=== PATIENT | male | born 1980 | race Hispanic/Latino ===

== ENCOUNTER 2017-10-07 10:14 | Day surgery (SDC) | payer OTHER ==
[2017-10-07 10:19] VITALS: BMI 25.8
--- NOTE | 2017-10-07 10:39 | ED PDOC ---
Arrival/HPI - General Chief Complaint: Foreign Body Time Seen by Provider: 10/07/17 10:22 Historian: Patient - History of Present Illness Narrative History of Present Illness (Text): 10/07/17 10:30 A 37 year old male, with no significant past medical history, presents to the emergency department complaining of something stuck in throat. Patient reports he drank homemade beef soup with cut vegetables. After drinking soup, patient began experiencing complaint and has had difficulty swallowing and drinking water. States when drinking water, water gurgles and is spat out. Patient denies any shortness of breath or any other complaints at this time. Also, patient notes this has never occurred before. No PMD Past Medical History - Provider Review Nursing Documentation Reviewed: Yes - Psychiatric Hx Substance Use: No - Surgical History Hx Musculoskeletal Surgery: Yes (hip and back) - Anesthesia Hx Anesthesia: Yes Hx Anesthesia Reactions: No Hx Malignant Hyperthermia: No Family/Social History - Physician Review Nursing Documentation Reviewed: Yes Family/Social History: No Known Family HX Smoking Status: Never Smoked Hx Alcohol Use: Yes Frequency of alcohol use: Socially Hx Substance Use: No Allergies/Home Meds Allergies/Adverse Reactions: Allergies No Known Allergies Allergy (Verified 10/07/17 10:18) Home Medications: Home Meds Medication Instructions Recorded Confirmed Pantoprazole [Protonix] 40 mg PO DAILY 10/07/17 10/07/17 Sucralfate [Carafate] 1 tsp PO QID 10/07/17 10/07/17 Review of Systems - Physician Review All systems were reviewed & negative as marked: Yes - Review of Systems ENT: Other (patient states feeling something stuck in throat; has difficulty swallowing and drinking fluids) Respiratory: absent: SOB Physical Exam Vital Signs Reviewed: Yes Vital Signs Temp Pulse Resp BP Pulse Ox 10/07/17 16:16 98.7 F 101 H 18 124/96 H 96 10/07/17 15:50 98.7 F 106 H 18 120/87 95 10/07/17 15:44 98.2 F 107 H 18 128/78 96 10/07/17 15:30 98.2 F 109 H 18 139/74 99 10/07/17 15:14 98.2 F 109 H 18 136/86 99 10/07/17 14:59 98.2 F 112 H 14 128/82 98 10/07/17 13:37 98.2 F 101 H 21 137/89 96 10/07/17 13:22 108 H 18 134/107 H 97 10/07/17 11:39 87 18 127/83 97 10/07/17 10:21 98.3 F 90 18 147/84 98 Temperature: Afebrile Blood Pressure: Normal Pulse: Regular Respiratory Rate: Normal Appearance: Positive for: Well-Appearing Pain Distress: None Mental Status: Positive for: Alert and Oriented X 3 - Systems Exam Head: Present: Atraumatic, Normocephalic Pupils: Present: PERRL Extroacular Muscles: Present: EOMI Conjunctiva: Present: Normal Mouth: Present: Moist Mucous Membranes Neck: Present: Normal Range of Motion Respiratory/Chest: Present: Clear to Auscultation, Good Air Exchange. No: Respiratory Distress, Accessory Muscle Use Cardiovascular: Present: Regular Rate and Rhythm, Normal S1, S2. No: Murmurs Abdomen: Present: Normal Bowel Sounds. No: Tenderness, Distention, Peritoneal Signs Back: Present: Normal Inspection Upper Extremity: Present: Normal Inspection. No: Cyanosis, Edema Lower Extremity: Present: Normal Inspection. No: Edema Neurological: Present: GCS=15, CN II-XII Intact, Speech Normal Skin: Present: Warm, Dry, Normal Color. No: Rashes Psychiatric: Present: Alert, Oriented x 3, Normal Insight, Normal Concentration Medical Decision Making ED Course and Treatment: 10/07/17 10:35 Impression: 37 year old male with "something stuck in throat". No acute findings in physical exam. Dx: Dysphagia secondary to food stuck in esophagus Plan: -- Chest X-ray -- Neck X-Ray -- Ativan and Benadryl -- Reassess and disposition Progress Notes: 10/07/2017 12:18 Chest X-ray IMPRESSION: No active disease. Dictator: Scott Perez MD 10/07/2017 12:18 Neck X-Ray IMPRESSION: Unremarkable radiographs of the soft tissues of the neck. Dictator: Phil Lizama MD 10/07/2017 13:11 Patient did not improve with medications given. He still had difficulty swallowing. Frequently spitting up in the ED. No respiratory compromise. I discussed the case in detail with Dr. Aguilera who came to evaluate the patient. CBC and Coags requested by Dr. Viramontes and completed. Patient admitted to [facility] under Dr. Aguilera for endoscopy. - Critical Care Critical Care Minutes: 30 minutes - Lab Interpretations Lab Results: 10/07/17 13:00 Lab Results 10/07/17 13:00: PT 11.2, INR 0.97, APTT 26.1 10/07/17 13:00: WBC 5.6, RBC 4.50, Hgb 15.1, Hct 42.4, MCV 94.2, MCH 33.6, MCHC 35.6, RDW 12.4, Plt Count 209, MPV 9.4, Gran % 79.4 H, Lymph % (Auto) 15.6 L, [place] % (Auto) 3.4, Eos % (Auto) 0.9 L, Baso % (Auto) 0.7, Gran # 4.48, Lymph # 0.9 L, [place] # 0.2, Eos # 0.1, Baso # 0.04 - RAD Interpretation Radiology Orders: 10/07/17 10:41 CXR [CHEST ONE VIEW] [RAD] Stat NECK SOFT TISSUE [RAD] Stat - Medication Orders Current Medication Orders: Discontinued Medications Diphenhydramine HCl (Benadryl) 25 mg IVP STAT STA Stop: 10/07/17 10:54 Last Admin: 10/07/17 11:39 Dose: 25 mg IVP Administration Document 10/07/17 11:39 OCS (Rec: 10/07/17 11:39 OCS [id number]) Charges for Administration # of IVP Administrations 1 Hydromorphone HCl (Dilaudid) 1 mg IVP Q15M PRN PRN Reason: Pain, moderate (4-7) Sodium Chloride (Sodium Chloride 0.9%) 1,000 mls @ 75 mls/hr IV .[id number] VELVET Stop: 10/07/17 17:01 Lorazepam (Ativan) 2 mg IVP ONCE ONE PRN Reason: Protocol Stop: 10/07/17 10:54 Last Admin: 10/07/17 11:39 Dose: 2 mg IVP Administration Document 10/07/17 11:39 OCS (Rec: 10/07/17 11:39 [id number] Charges for Administration # of IVP Administrations 1 Ondansetron HCl (Zofran Inj) 4 mg IVP ONCE PRN PRN Reason: Nausea/Vomiting - Scribe Statement The provider has reviewed the documentation as recorded by the Naniiblawson Barry Provider Scribe Attestation: All medical record entries made by the Yuri were at my direction and personally dictated by me. I have reviewed the chart and agree that the record accurately reflects my personal performance of the history, physical exam, medical decision making, and the department course for this patient. I have also personally directed, reviewed, and agree with the discharge instructions and disposition. Disposition/Present on Arrival - Present on Arrival Any Indicators Present on Arrival: No History of DVT/PE: No History of Uncontrolled Diabetes: No Urinary Catheter: No History of Decub. Ulcer: No History Surgical Site Infection Following: None - Disposition Have Diagnosis and Disposition been Completed?: Yes Diagnosis: Esophageal dysphagia Disposition: HOSPITALIZED Disposition Time: 13:11 Patient Plan: Admission Condition: IMPROVED
[2017-10-07] MEDS ORDERED: Glucagon Recombinant 1 mg Inj IV STA (10:43)
[2017-10-07] MEDS ORDERED: DiphenhydrAMINE 50 mg/ml Inj IVP STA (10:53)
--- NOTE | 2017-10-07 12:19 | RAD ---
PROCEDURE: CHEST RADIOGRAPH, 1 VIEW HISTORY: feeling of carrot stuck in throat COMPARISON: None available. FINDINGS: LUNGS: Clear. PLEURA: No pneumothorax or pleural fluid seen. CARDIOVASCULAR: Normal. OSSEOUS STRUCTURES: No significant abnormalities. Healed posterior lateral left rib fractures. VISUALIZED UPPER ABDOMEN: Normal. OTHER FINDINGS: None. IMPRESSION: No active disease.
--- NOTE | 2017-10-07 12:19 | RAD ---
PROCEDURE: Radiographs of the neck (soft tissue). HISTORY: feeling of carrot stuck in throat COMPARISON: None. TECHNIQUE: Lateral Radiographs of the neck, optimized for soft tissue visualization. FINDINGS: SOFT TISSUES: Unremarkable. No radiopaque foreign body seen. CERVICAL SPINE: Grossly unremarkable. OTHER FINDINGS: None. IMPRESSION: Unremarkable radiographs of the soft tissues of the neck.
[2017-10-07 13:16] LABS: BASO # 0.04 [, K/mm3] (0.0-2.0); BASO % 0.7 % (0.0-3.0); EOS # 0.1 (0.0-0.7); EOS % 0.9 % (1.5-5.0); GRAN # 4.48 (1.4-6.5); GRAN % 79.4 % (50.0-68.0); HEMOGLOBIN 15.1 g/dL (14.0-18.0); LYMPH # 0.9 (1.2-3.4); LYMPH % 15.6 % (22.0-35.0); MEAN CELL VOLUME 94.2 fl (80.0-105.0); MEAN CORPUSCULAR HEMOGLOBIN 33.6 pg (25.0-35.0); MEAN CORPUSCULAR HGB CONC 35.6 g/dl (31.0-37.0); MEAN PLATELET VOLUME 9.4 fl (7.0-11.0); MONO # 0.2 (0.1-0.6); MONO % 3.4 % (1.0-6.0); RBC 4.5 [, 10^6/uL] (3.5-6.1); RED CELL DISTRIBUTION WIDTH 12.4 % (11.5-14.5); WHITE BLOOD COUNT 5.6 [, 10^3/ul] (4.5-11.0)
[2017-10-07 13:34] LABS: INR 0.97 (0.93-1.08); PARTIAL THROMBOPLASTIN TIME 26.1 Seconds (25.1-36.5); PROTHROMBIN TIME 11.2 SECONDS (9.4-12.5)
[2017-10-07] MEDS ORDERED: Propofol 10 mg/ml Inj (20 ML) ONE ×2 (13:49→14:12)
[2017-10-07] MEDS ORDERED: Succinylcholine 200 mg/10 ml Inj IV ONE (13:49)
[2017-10-07] MEDS ORDERED: Desflurane Inhalation Anesthetic Liq (240 ml) ONE (14:11)
[2017-10-07] MEDS ORDERED: Sevoflurane - Inhalation Anesthetic Liq (250 ml) ONE (14:11)
[2017-10-07] MEDS ORDERED: HYDROmorphone 1 mg/ml ISec IVP PRN ×2 (14:59→15:02)
[2017-10-07] MEDS ORDERED: Sodium Chloride 0.9% 1,000 ML IV SCH (15:00)
[2017-10-07 15:20] VITALS: RESP 18
[2017-10-07 16:02] VITALS: TEMP 98.7
[2017-10-07 16:16] VITALS: BP 124/96; PULSE 101; O2SAT 96
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
--- NOTE | 2017-10-08 02:06 | HP ---
POSTPROCEDURE PHYSICAL Performed an emergency endoscopy on Mr. Yanez for esophageal foreign body. The patient complained of severe dysphagia and odynophagia. The patient had an endoscopic procedure with successful results. The patient is transferred to PACU after the endoscopic procedure in stable condition. No acute events occurred during the procedure. PHYSICAL EXAMINATION: VITAL SINGS: In PACU, the patient's vital signs are stable. LUNGS: Clear to auscultation. HEART: Regular rhythm. ABDOMEN: Soft. No tenderness elicited. OVERALL ASSESSMENT: This is a patient with previous foreign body in cervical portion of the esophagus. We removed it endoscopically. The patient will be stabilized in PACU, after which he will go home on prescriptions which include proton pump inhibitor pantoprazole, as well as small bottle of Carafate suspension. Pantoprazole will be taken one tablet daily. The Carafate suspension one tablespoon three times daily at least one-half hour after a meal three times daily. The patient will be followed up in PMD and GI offices at a later date and biopsy results reviewed. Tino Aguilera DO, PhD [facility]
== END 2017-10-07 16:24 | disposition home or self-care (01) ==
LOC: ED 10:14 → SDS 13:25
PROVIDERS: ATTEND Internal Medicine Gastroenterology
DX: T18.198A Other foreign object in esophagus causing other injury, initial encounter (principal); K29.70 Gastritis, unspecified, without bleeding; K21.0 Gastro-esophageal reflux disease with esophagitis; K44.9 Diaphragmatic hernia without obstruction or gangrene; R13.10 Dysphagia, unspecified
CPT/HCPCS: 43239; 43247; 70360; 71045; 85025; 85610; 85730; 88305; 88312; 88342; 96374; 96375; 99283; J0330; J1170; J1200; J2060; J2405; J2704; J7030; J7040 ×2